=== PATIENT | male | born 1965 | race Caucasian/White ===

== ENCOUNTER 2023-06-13 17:51 | Emergency (ER) | payer SELFPAY ==
[~2023-06-13] VITALS: Ht 167.6 cm; Wt 77.0 kg
[2023-06-13 17:57] VITALS: O2SAT 99
[2023-06-13 18:41] LABS: BASOPHILS % 0.4 % (0.0-2.0); EOSINOPHILS % 0.9 % (0.0-5.0); HEMATOCRIT. 43.9 % (42.0-52.0); HEMOGLOBIN. 15.2 g/dL (14.0-18.0); LYMPHOCYTES % 48.7 % (20.0-50.0); MEAN CORPUSCULAR HEMOGLOBIN 32.5 pg (28.0-32.0); MEAN PLATELET VOLUME 8.1 fl (7.4-10.4); MONOCYTES % 5.3 % (2.0-8.0); NEUTROPHILS % 44.7 % (40.0-76.0); PLATELET 104 x1000/uL (130-400); RED BLOOD CELL COUNT 4.67 mill/uL (4.7-6.1); RED CELL DISTRIBUTION WIDTH 14.9 % (11.6-14.6)
[2023-06-13 18:50] LABS: CHLORIDE 105 mEq/L (98-107)
[2023-06-13 19:02] LABS: CREATINE KINASE 99 IU/L (39-308)
[2023-06-13 19:06] LABS: ETHANOL BLOOD 528 mg/dL (-10)
[2023-06-13 21:50] VITALS: BP 142/87; PULSE 89; RESP 18; TEMP 98.6
== END 2023-06-13 21:52 | disposition home or self-care (01) ==
LOC: ER 17:54
DX: F10.129 Alcohol abuse with intoxication, unspecified (principal); R74.01 Elevation of levels of liver transaminase levels; Y90.8 Blood alcohol level of 240 mg/100 ml or more
CPT/HCPCS: 36415; 80053; 80305; 80307; 80320; 80329; 81003; 82550; 84443; 85025; 99283; 99284; G0480

== ENCOUNTER 2023-11-26 08:44 | Emergency (ER) | payer MEDICAID, OTHER ==
[~2023-11-26] VITALS: Ht 167.6 cm; Wt 71.0 kg
[~2023-11-26 08:44] MED LIST: ONDA4TAB50 MT
[2023-11-26 08:47] VITALS: BP 117/78; PULSE 68; RESP 18; TEMP 98.4; O2SAT 97
== END 2023-11-26 10:00 | disposition left against medical advice (07) ==
LOC: ER 09:58
DX: F10.129 Alcohol abuse with intoxication, unspecified (principal); Z53.21 Procedure and treatment not carried out due to patient leaving prior to being seen by health care provider; Y90.9 Presence of alcohol in blood, level not specified
CPT/HCPCS: 99281